=== PATIENT | male | born 1985 | race American Indian/Alaskan Native ===

== ENCOUNTER 2019-06-28 08:53 | Emergency (ER) | payer MEDICAID ==
--- NOTE | 2019-06-28 16:14 | Emergency Department Report ---
HPI - General Chief Complaint: Psych Time Seen by Provider: 06/28/19 15:34 - HPI HPI: 33-year-old -Norwegian male presents to the emergency department for a mental health evaluation. Patient is not very forthcoming with answering questions. Apparently through triage the patient mentioned "I have to go [place] At that time he mentioned something about wanting to without a plan. However for me the patient is refusing to answer most questions. He appears to respond mostly with "why?" In reviewing the patient's previous records he has a history of bipolar disorder and schizophrenia. He lives in a fpc. The patient does admit today that he was dropped off to be seen but could not tell me whether or not it was voluntarily. The patient was seen here 5 days ago for suicidal ideations and was discharged home by the psychiatric team. ED Past Medical Hx - Past Medical History Additional medical history: DENIES - Surgical History Past Surgical History?: No - Social History Smoking Status: Unknown if ever smoked - Medications Home Medications: Home Medications Medication Instructions Recorded Confirmed Last Taken Type Quetiapine Fumarate [SEROquel] 400 mg PO QHS 06/13/19 06/13/19 Unknown History ED Review of Systems ROS: Stated complaint: PSYCH Other details as noted in HPI Comment: Unobtainable due to pts medical conditions Physical Exam - Physical Exam Vital Signs: Vital Signs 06/28/19 08:58 Temperature 97.6 F Pulse Rate 63 Respiratory 18 Rate Blood Pressure 146/83 O2 Sat by Pulse 95 Oximetry Physical Exam: GENERAL: The patient is well-developed well-nourished. HENT: Normocephalic. Atraumatic. Patient has moist mucous membranes. EYES: Extraocular motions are intact. NECK: Supple. Trachea is midline. CHEST/LUNGS: Clear to auscultation. There is no respiratory distress noted. HEART/CARDIOVASCULAR: Regular. There is no tachycardia. There is no murmur. ABDOMEN: Abdomen is soft, nontender. Patient has normal bowel sounds. There is no abdominal distention. SKIN: Skin is warm and dry. NEURO: The patient is awake but is not cooperative. No facial asymmetry. MUSCULOSKELETAL: There is no tenderness or deformity. There is no evidence of acute injury. ED Course Vital Signs 06/28/19 08:58 Temperature 97.6 F Pulse Rate 63 Respiratory 18 Rate Blood Pressure 146/83 O2 Sat by Pulse 95 Oximetry ED Medical Decision Making - Lab Data Result diagrams: 06/28/19 16:46 06/28/19 16:46 - Medical Decision Making This patient presents for a mental health evaluation. Through triage he expresses some delusions and expressed suicidal ideations. For my examination the patient is unwilling to answer most questions. Given all of this, the patient has been placed on a 1013. He was seen by the mental health house manager, uJlia, who agrees with the plan for the 1013 and inpatient psychiatric admission. Shortly afterwards the patient has become verbally aggressive towards ER staff and other patients and was given some Geodon. He has been reevaluated multiple times and appears to be resting comfortably at this time. Patient's labs are thus far unremarkable. We are awaiting urinalysis but the patient appears medically cleared for psychiatric placement. - Differential Diagnosis Bipolar disorder, schizophrenia, schizoaffective, substance abuse Critical Care Time: No Critical care attestation.: If time is entered above; I have spent that time in minutes in the direct care of this critically ill patient, excluding procedure time. ED Disposition Clinical Impression: Acute psychosis Disposition: DC/TX-65 PSY HOSP/PSY UNIT Is pt being admited?: No Condition: Stable Referrals: BOB OROPEZA MD [Primary Care Provider] - 3-5 Days Time of Disposition: 22:18
[2019-06-28 17:12] LABS: Hematocrit 43.8 % (35.5-45.6); Hemoglobin 14.8 gm/dl (11.8-15.2); Mean Corpuscular HGB Conc 34 % (32-34); Mean Corpuscular Volume 93 fl (84-94); Platelet Count 270 K/mm3 (140-440); Red Blood Count 4.71 M/mm3 (3.65-5.03); Red Cell Distribution Width 13.3 % (13.2-15.2)
[2019-06-28 17:22] LABS: BUN/Creatinine Ratio 13; Blood Urea Nitrogen 10 mg/dL (9-20); Calcium 9.6 mg/dL (8.4-10.2); Hemolysis Index 9
[2019-06-28] MEDS ORDERED: ZIPRASIDONE MESYLATE 20 MG VIAL IM ONE (17:53)
[2019-06-28] MEDS ORDERED: WATER FOR INJ Sterile (PF) 10 ML ONE (17:56)
[2019-06-28 18:55] LABS: Basophils % (Manual) 0 % (0.0-1.8); Eosinophils % (Manual) 0 % (0.0-4.3); Total Cells Counted 100
[2019-06-28 18:56] LABS: Large Platelets 1+; Macrocytosis Few; Ovalocytes Few; Platelet Estimate Consistent w Auto
--- NOTE | 2019-06-29 11:00 | Consultation ---
History of Present Illness - Reason for Consult Consult date: 06/29/19 Reason for consult: SI, AH - History of Present Psychiatric Illness The patient's medical record was reviewed and the patient's progress was discussed with the nursing staff. The nurse caring for the patient today states the patient is suspicious of everything, paranoid and uncooperative with marian urbina. Shaquille Jimenez is a 33y/o male patient who came to the ER for for psychosis. The patient is known to me from a recent visit. He is sitting in the room. Awake. Dressed appropriately. He is avoidant. He does not respond or acknowledge me when entering the room or calling his name. Attempted to introduce myself and interview the patient but he never looks up. Left the room and spoke with the nurse caring for the patient. I attempted to interview the patient again. He says "I don't know you." He refuses to answer any more questions. Psychiatric History Unable to assess due to patient being uncooperative Past Medical History Unable to assess due to patient being uncooperative Social History Unable to assess due to patient being uncooperative REVIEW OF SYSTEMS Unable to obtain MSE Appearance: Dressed appropriately. Behavior: Calm. Avoidant. Unable to obtain. The patient would not cooperative Diagnoses: Diagnoses: Schizoaffective Disorder Plan Continue 1013 Geodon 20mg po BID to decrease psychosis Geodon 10mg IM q6h prn agitation Doxepin 10mg po qhs to induce sleep Melatonin 5mg po qhs to promote rest The patient cannot refuse oral antipsychotics. If he refuses oral, please administer PRN IM geodon Sitter: Defer to primary Medical: Per primary Disposition: The patient meets the requirement for acute inpatient hospitalization. He may transfer to an acute psych facility once medically cleared. Will continue to follow the patient until transferred or until his conditions improve enough to be discharged. Please call with any questions or concerns. Thank you for this consult. Medications and Allergies Allergies Allergy/AdvReac Type Severity Reaction Status Date / Time Unable to Assess Allergy Unverified 06/28/19 08:57 Mental Status Exam - Vital signs Last Vital Signs Temp 97.8 F 06/29/19 02:36 Pulse 96 H 06/29/19 02:36 Resp 18 06/29/19 02:36 BP 118/58 06/29/19 02:36 Pulse Ox 100 06/29/19 02:36 Results Result Diagrams: 06/28/19 16:46 06/28/19 16:46 Abnormal lab results 06/28/19 06/28/19 Range/Units 16:46 16:46 Monocytes % (Manual) 13.0 H (0.0-7.3) % Potassium 3.4 L (3.6-5.0) mmol/L Chloride 97.6 L (98-107) mmol/L Carbon Dioxide 21 L (22-30) mmol/L Glucose 105 H (75-100) mg/dL All other labs normal.
[2019-06-29] MEDS ORDERED: ZIPRASIDONE MESYLATE 20 MG VIAL IM PRN (11:09)
[2019-06-29] MEDS ORDERED: MELATONIN 5 MG TAB PO PRN (11:10)
[2019-06-29] MEDS: ZIPRASIDONE 20 MG CAP PO SCH ×2 (13:15→22:32)
[2019-06-29 15:55] LABS: Bacteria,Urine 1+ /HPF (Negative); Bilirubin,Urine NEG (Negative); Blood,Urine NEG (Negative); Color,Urine Yellow (Yellow); Mucus,Urine FEW /HPF; Protein,Urine <15 mg/dL mg/dL (Negative); Urobilinogen,Urine < 2.0 mg/dL (<2.0)
[2019-06-29 16:02] LABS: Amphetamine Screen,Urine PRESUMPTIVE NEGATIVE; Benzodiazepines Screen,Urine PRESUMPTIVE NEGATIVE; Cannabinoid Screen,Urine PRESUMPTIVE NEGATIVE; Cocaine Screen,Urine PRESUMPTIVE NEGATIVE; Methadone Screen,Urine PRESUMPTIVE NEGATIVE; Opiate Screen,Urine PRESUMPTIVE NEGATIVE
[2019-06-29] MEDS ORDERED: DOXEPIN 10 MG CAP PO SCH (22:00)
[2019-06-30 02:07] VITALS: BP 125/80
== END 2019-06-30 03:30 ==
LOC: EDBD → EEVIPCON 08:53 → ED 08:53
DX: F23 Brief psychotic disorder (principal)
CPT/HCPCS: 36415; 80048; 80307; 81001; 85007; 85025; 96372; 99285; J3486; 80320; G0480

== ENCOUNTER 2020-04-08 12:17 | Emergency (ER) | payer BC, MEDICARE ==
--- NOTE | 2020-04-08 13:56 | Emergency Department Report ---
ED Psych HPI - General Chief Complaint: Psych Stated Complaint: SI Time Seen by Provider: 04/08/20 13:46 Source: patient Mode of arrival: Ambulatory - History of Present Illness Initial Comments: 34-year-old male, history is bipolar disorder and schizophrenia, presents to ED with homicidal ideations. Patient states he wants to kill Mr. 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 Patient states, "Because he is always in my business and he keeps provoking me." Patient reports his plan is to "get a knife and kill him." Patient states he has been feeling this way since 2019. Patient denies any SI or hallucinations. MD Complaint: other -: month(s) (3) Associated Psychiatric Symptoms: homicidal ideation Quality: constant Improves With: none Worsens With: none Associated Symptoms: denies other symptoms Treatments Prior to Arrival: none - Related Data Home Medications Medication Instructions Recorded Confirmed Last Taken Divalproex ER [DepaKOTE ER] 1,500 mg PO QHS 12/25/19 04/08/20 Unknown Paliperidone Palmitate [Invega 1 mg IM QMONTH 12/25/19 04/08/20 Unknown Sustenna] Allergies Allergy/AdvReac Type Severity Reaction Status Date / Time shellfish derived Allergy Anaphylaxis Verified 12/25/19 01:53 ED Review of Systems ROS: Stated complaint: SI Other details as noted in HPI Comment: All other systems reviewed and negative Psychiatric: homicidal thoughts. denies: auditory hallucinations, visual hallucinations, suicidal thoughts ED Past Medical Hx - Past Medical History Previous Medical History?: Yes Hx Hypertension: Yes Hx Psychiatric Treatment: Yes (MDD, Paranoid Schizophrenia, bipolar) Hx Asthma: Yes Additional medical history: DENIES - Surgical History Past Surgical History?: No Additional Surgical History: unknown - Social History Smoking Status: Never Smoker - Medications Home Medications: Home Medications Medication Instructions Recorded Confirmed Last Taken Type Divalproex ER [DepaKOTE ER] 1,500 mg PO QHS 12/25/19 04/08/20 Unknown History Paliperidone Palmitate [Invega 1 mg IM QMONTH 12/25/19 04/08/20 Unknown History Sustenna] ED Physical Exam - General Limitations: No Limitations General appearance: alert, in no apparent distress - Head Head exam: Present: atraumatic, normocephalic - Eye Eye exam: Present: normal appearance, EOMI - ENT ENT exam: Present: mucous membranes moist - Neck Neck exam: Present: normal inspection - Respiratory Respiratory exam: Present: normal lung sounds bilaterally. Absent: respiratory distress - Cardiovascular Cardiovascular Exam: Present: regular rate, normal rhythm - GI/Abdominal GI/Abdominal exam: Absent: distended - Extremities Exam Extremities exam: Present: normal inspection - Neurological Exam Neurological exam: Present: alert, oriented X3 - Psychiatric Psychiatric exam: Present: normal affect, normal mood - Skin Skin exam: Present: warm, dry, intact, normal color ED Course Vital Signs 04/08/20 04/08/20 04/08/20 12:51 13:41 15:29 Temperature 98.5 F 98 F Pulse Rate 82 81 Respiratory 14 18 18 Rate Blood Pressure Blood Pressure 181/87 118/70 [Right] O2 Sat by Pulse 99 100 100 Oximetry 04/08/20 19:38 Temperature 98.3 F Pulse Rate 74 Respiratory 18 Rate Blood Pressure 109/67 Blood Pressure [Right] O2 Sat by Pulse 99 Oximetry ED Medical Decision Making - Lab Data Result diagrams: 04/08/20 14:19 04/08/20 14:19 - Medical Decision Making 34-year-old male, history of schizophrenia, presents to ED with homicidal ideations. Patient states he plans to kill the director of his care home with a knife. Upon initial arrival, blood pressure was elevated, however repeat vital signs are normal. Labs are unremarkable. Patient has been placed on a 1013. Will dispo per psych. - Differential Diagnosis Schizophrenia, homicidal ideation Critical care attestation.: If time is entered above; I have spent that time in minutes in the direct care of this critically ill patient, excluding procedure time. ED Disposition Clinical Impression: Homicidal ideation Disposition: DC/TX-65 PSY HOSP/PSY UNIT Is pt being admited?: No Condition: Stable Referrals: PRIMARY CARE, [Primary Care Provider] - 3-5 Days
[2020-04-08 14:20] LABS: Bilirubin,Urine NEG (Negative); Blood,Urine NEG (Negative); Color,Urine Straw (Yellow); Protein,Urine <15 mg/dL mg/dL (Negative); Urobilinogen,Urine < 2.0 mg/dL (<2.0)
[2020-04-08 14:22] LABS: WBC,Urine < 1.0 /HPF (0.0-6.0)
[2020-04-08 14:27] LABS: Amphetamine Screen,Urine Negative; Benzodiazepines Screen,Urine Negative; Cannabinoid Screen,Urine Negative; Cocaine Screen,Urine Negative; Methadone Screen,Urine Negative; Opiate Screen,Urine Negative
[2020-04-08 15:02] LABS: Eosinophils # (Auto) 0.1 K/mm3 (0.0-0.4); Eosinophils % (Auto) 1.4 % (0.0-4.3); Hematocrit 38.9 % (35.5-45.6); Hemoglobin 13.7 gm/dl (11.8-15.2); Lymphocytes # (Auto) 1.9 K/mm3 (1.2-5.4); Lymphocytes % (Auto) 45.8 % (13.4-35.0); Mean Corpuscular HGB Conc 35 % (32-34); Mean Corpuscular Volume 96 fl (84-94); Monocytes # (Auto) 0.4 K/mm3 (0.0-0.8); Monocytes % (Auto) 8.9 % (0.0-7.3); Platelet Count 227 K/mm3 (140-440); Red Blood Count 4.04 M/mm3 (3.65-5.03); Red Cell Distribution Width 14.7 % (13.2-15.2)
[2020-04-08 15:35] LABS: BUN/Creatinine Ratio 10; Blood Urea Nitrogen 9 mg/dL (9-20); Calcium 9.5 mg/dL (8.4-10.2); Hemolysis Index 13
[2020-04-08 20:11] VITALS: BP 109/67
== END 2020-04-08 21:30 ==
LOC: ED 12:17
DX: R45.850 Homicidal ideations (principal); I10 Essential (primary) hypertension; J45.909 Unspecified asthma, uncomplicated; F25.0 Schizoaffective disorder, bipolar type; Z79.899 Other long term (current) drug therapy; Z91.013 Allergy to seafood
CPT/HCPCS: 36415; 80048; 80307; 80320; 81001; 85025; G0480

== ENCOUNTER 2020-04-22 14:37 | Emergency (ER) | payer MEDICARE ==
--- NOTE | 2020-04-22 16:46 | Emergency Department Report ---
ED Psych HPI - General Chief Complaint: Psych Stated Complaint: MENTAL HEALTH, SI Time Seen by Provider: 04/22/20 16:30 Source: patient Mode of arrival: Ambulatory - History of Present Illness Initial Comments: Chief complaint: "I am really scared." HPI: This is a 34-year-old male with history of schizophrenia, major depressive disorder, bipolar affective disorder who presents with paranoia, anxiety, auditory and visual hallucinations. For the past day he feels "like people are out to get me". 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 He feels as if he is hyperventilating. He also states, "I feel suicidal." He does not have a plan to harm himself or others. Patient has been compliant with Depakote. He lives in a long term. He also receives Invega injection. He receives psychiatric care at [facility]. Physically he has been in his normal state of health. He denies any physical complaints. History of several previous suicide attempts. History of previous psychiatric hospitalizations. MD Complaint: suicidal ideation, feels depressed, other (Hallucinations, paranoia, anxiety) -: Gradual, days(s) (1) Associated Psychiatric Symptoms: depression, racing thoughts, auditory h allucinations, visual hallucinations History of same: Yes Quality: constant Improves With: medication Worsens With: none Context: other (Unknown trigger) Associated Symptoms: other ("Hyperventilating") Treatments Prior to Arrival: none If Self Harm: admits thoughts of - Related Data Home Medications Medication Instructions Recorded Confirmed Last Taken Divalproex ER [DepaKOTE ER] 1,500 mg PO QHS 12/25/19 04/08/20 Unknown Paliperidone Palmitate [Invega 1 mg IM QMONTH 12/25/19 04/08/20 Unknown Sustenna] Allergies Allergy/AdvReac Type Severity Reaction Status Date / Time shellfish derived Allergy Anaphylaxis Verified 12/25/19 01:53 ED Review of Systems ROS: Stated complaint: MENTAL HEALTH, SI Other details as noted in HPI Comment: All other systems reviewed and negative Constitutional: denies: fever, malaise Respiratory: denies: cough, shortness of breath Cardiovascular: denies: chest pain Gastrointestinal: denies: abdominal pain, nausea, vomiting Psychiatric: anxiety, depression, auditory hallucinations, visual alf lucinations, suicidal thoughts ED Past Medical Hx - Past Medical History Previous Medical History?: Yes Hx Hypertension: Yes Hx Psychiatric Treatment: Yes (MDD, Paranoid Schizophrenia, bipolar) Hx Asthma: Yes Additional medical history: DENIES - Surgical History Additional Surgical History: unknown - Social History Smoking Status: Never Smoker - Medications Home Medications: Home Medications Medication Instructions Recorded Confirmed Last Taken Type Divalproex ER [DepaKOTE ER] 1,500 mg PO QHS 12/25/19 04/08/20 Unknown History Paliperidone Palmitate [Invega 1 mg IM QMONTH 12/25/19 04/08/20 Unknown History Sustenna] ED Physical Exam - General Limitations: No Limitations General appearance: alert, in no apparent distress, anxious - Head Head exam: Present: atraumatic, normocephalic - Eye Eye exam: Present: normal appearance - ENT ENT exam: Present: mucous membranes moist - Neck Neck exam: Present: normal inspection, full ROM - Respiratory Respiratory exam: Present: normal lung sounds bilaterally. Absent: respiratory distress, wheezes, rales, rhonchi - Cardiovascular Cardiovascular Exam: Present: regular rate, normal rhythm, normal heart sounds. Absent: systolic murmur, diastolic murmur, rubs, gallop - GI/Abdominal GI/Abdominal exam: Present: soft, normal bowel sounds. Absent: distended, tenderness, guarding, rebound - Rectal Rectal exam: Present: deferred - Extremities Exam Extremities exam: Present: normal inspection - Back Exam Back exam: Present: normal inspection - Neurological Exam Neurological exam: Present: alert, oriented X3 - Psychiatric Psychiatric exam: Present: normal affect, anxious, flat affect - Skin Skin exam: Present: warm, dry, intact, normal color. Absent: rash ED Course Vital Signs 04/22/20 15:35 Temperature 98.6 F Pulse Rate 62 Respiratory 18 Rate Blood Pressure 130/73 [Right] O2 Sat by Pulse 98 Oximetry ED Medical Decision Making - Lab Data Result diagrams: 04/22/20 16:36 04/22/20 16:36 - Medical Decision Making Mr. Jimenez is a 34-year-old male with history of major depressive disorder, paranoid schizophrenia and bipolar affective disorder. Who presents with paranoia, anxiety suicidality. He also reports auditory and visual hallucinations. Mr. Jimenez is medically clear for psychiatric care. He currently does not have a plan to harm himself or others. He does appear anxious at this time. He does not appear to be responding to internal stimuli. Awaiting treatment recommendations by psychiatric team. 1013 form has been completed to initiate involuntary hold for acute psychosis severe symptoms of anxiety suicidality. I have reviewed labs obtained including CBC chemistry serum toxicology screen urinalysis and UDS. All labs are unremarkable. Serum toxicology screen negative for salicylates acetaminophen alcohol. Urine drug screen hendrickson-negative. Critical care attestation.: If time is entered above; I have spent that time in minutes in the direct care of this critically ill patient, excluding procedure time. ED Disposition Clinical Impression: Acute psychosis, Suicidal ideation, Paranoid schizophrenia, Bipolar affective disorder Disposition: DC/TX-65 PSY HOSP/PSY UNIT Is pt being admited?: No Does the pt Need Aspirin: No Condition: Stable Referrals: PRIMARY CAREMD [Primary Care Provider] - 3-5 Days
[2020-04-22 16:55] LABS: Bilirubin,Urine NEG (Negative); Blood,Urine NEG (Negative); Color,Urine Yellow (Yellow); Mucus,Urine FEW /HPF; Protein,Urine <15 mg/dL mg/dL (Negative); Urobilinogen,Urine < 2.0 mg/dL (<2.0)
[2020-04-22 17:03] LABS: Amphetamine Screen,Urine PRESUMPTIVE NEGATIVE; Benzodiazepines Screen,Urine PRESUMPTIVE NEGATIVE; Cannabinoid Screen,Urine PRESUMPTIVE NEGATIVE; Cocaine Screen,Urine PRESUMPTIVE NEGATIVE; Methadone Screen,Urine PRESUMPTIVE NEGATIVE; Opiate Screen,Urine PRESUMPTIVE NEGATIVE
[2020-04-22 17:07] LABS: Basophils # (Auto) 0.1 K/mm3 (0.0-0.1); Basophils % (Auto) 0.9 % (0.0-1.8); Eosinophils # (Auto) 0.1 K/mm3 (0.0-0.4); Eosinophils % (Auto) 1.2 % (0.0-4.3); Hematocrit 46.8 % (35.5-45.6); Hemoglobin 15.5 gm/dl (11.8-15.2); Lymphocytes # (Auto) 1.9 K/mm3 (1.2-5.4); Lymphocytes % (Auto) 33.7 % (13.4-35.0); Mean Corpuscular HGB Conc 33 % (32-34); Mean Corpuscular Volume 97 fl (84-94); Monocytes # (Auto) 0.5 K/mm3 (0.0-0.8); Monocytes % (Auto) 8.9 % (0.0-7.3); Platelet Count 286 K/mm3 (140-440); Red Blood Count 4.85 M/mm3 (3.65-5.03); Red Cell Distribution Width 14.4 % (13.2-15.2)
[2020-04-22 17:09] LABS: BUN/Creatinine Ratio 10; Blood Urea Nitrogen 9 mg/dL (9-20); Calcium 10.1 mg/dL (8.4-10.2); Hemolysis Index 20
--- NOTE | 2020-04-23 08:31 | Consultation ---
History of Present Illness - Reason for Consult Consult date: 04/23/20 Reason for consult: MHE Requesting physician: MAGALY VALE - History of Present Psychiatric Illness Per ED Provider: This is a 34-year-old male with history of schizophrenia, major depressive disorder, bipolar affective disorder who presents with paranoia, anxiety, auditory and visual hallucinations. For the past day he feels "like people are out to get me". 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 He feels as if he is hyperventilating. He also states, "I feel suicidal." He does not have a plan to harm himself or others. Patient has been compliant with Depakote. He lives in a nursing home. He also receives Invega injection. He receives psychiatric care at [facility]. Physically he has been in his normal state of health. He denies any physical complaints. History of several previous suicide attempts. History of previous psychiatric hospitalizations. PSYCH HPI Patient is a 34-year-old single, unemployed currently on SSI, -[place]incent[place] male who resides in a nursing home with past psychiatric history of autism, bipolar, schizoaffective disorder who presented to the ED with chief complaint of paranoia. Though patient is not known to me, patient is well-known to the facility presented to the facility about 2 weeks ago with similar complaints and was admitted to a psych facility for 10 days in which was just recently discharged after being managed inpatient. Patient stated that he is thinking about kill himself because someone is out after getting the report is being followed and does not know with this presently and then self admits to being paranoid, patient reported being in a nursing home, prior to that he was homeless, patient reports he sees Dr. Santoro as an outne tient psychiatrist but he has not seen in recent months, reports that her mom are . Patient also stated that he is upset, but is not know why he is still paranoid. PAST PSYCHIATRIC HISTORY: Diagnoses: Bipolar Suicide attempts or Self-harm behavior: seven Prior psychiatric hospitalizations: "multiple, most recent less than 4 days ago" Substance Abuse history: Denies Previous psychiatric medications tried: unable to recall Outpatient treatment: non compliance PAST MEDICAL HISTORY: None reported Family Psychiatric History: None reported or documented SOCIAL HISTORY Marital Status: Single Living Arrangements: [facility] Employment Status: Disabled Access to guns/weapons: Denies Education: High school grad History of Abuse: "thinks people are misusing his money" Legal History: Denies REVIEW OF SYSTEMS Constitutional: Negative for weight loss ENT: Negative for stridor Respiratory: Negative for cough or hemoptysis All other systems reviewed and are negative MENTAL STATUS EXAMINATION General Appearance: Dressed appropriately Behavior: Calm and cooperative. Poor eye contact, withdrawn to self Mood: "depressed" Affect and affective range: Congruent with stated mood Thought Process: Goal directed Speech: low tone, normal pace Thought Content: Suicidal Ideation: Yes Homicidal Ideation: Denies Hallucinations: Auditory Delusions: None elicited Insight and Judgment: Limited Memory/Cognition: Limited Attention: Normal ASSESSMENT Bipolar Disorder, Current Episode Depressed Treatment Plan This patient was just recently at this facility 2 weeks ago and was placed for acute inpatient stabilization in which was just discharged less than 4 days ago. Patient has multiple psychiatric history, patient has no good outpatient follow-up based on history, has also had multiple hospitalizations, unsure abouts medication compliance and is not acutely psychotic. Patients behavior seems chronic, based on history, and secondary information from nursing home. Reports patients likes to go to hospital even for anxiety and minor issues at nursing home. Discussed with my care team, to have outp follow up referral services scheduled, at this time, due to recent hospitalization, outpt psych services recommended. MEDICATIONS: Risks, benefits and alternatives of medications discussed with the patient, questions answered and consent obtained from patient. PSYCHOTHERAPY: Supportive psychotherapy provided MEDICAL: Per primary team DELIRIUM PRECAUTIONS: Please re-orient patient frequently, keep lights on during the day, and minimize benzodiazepines and opiates as these medications could worsen patient's confusion. 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 Safety discharge. Case discussed with Edwar, agrees with disposition LEGAL STATUS: 1013 rescinded FOLLOW-UP: Will sign off Thank you for the consult. Please contact with any questions and/or concerns. Medications and Allergies Allergies Allergy/AdvReac Type Severity Reaction Status Date / Time shellfish derived Allergy Anaphylaxis Verified 12/25/19 01:53 Home Medications Medication Instructions Recorded Confirmed Last Taken Type Divalproex ER [DepaKOTE ER] 1,500 mg PO QHS 12/25/19 04/08/20 Unknown History Paliperidone Palmitate [Invega 1 mg IM QMONTH 08/18/20 12/01/20 Unknown History Sustenna] Mental Status Exam - Vital signs Last Vital Signs Temp 98.2 F 04/23/20 01:05 Pulse 73 04/23/20 01:05 Resp 18 04/23/20 01:05 BP 106/73 04/23/20 01:05 Pulse Ox 97 04/23/20 01:05 Results Result Diagrams: 04/22/20 16:36 04/22/20 16:36 Abnormal lab results 04/22/20 04/22/20 04/22/20 Range/Units 16:36 16:36 16:36 Hgb 15.5 H (11.8-15.2) gm/dl Hct 46.8 H (35.5-45.6) % MCV 97 H (84-94) fl [place] % (Auto) 8.9 H (0.0-7.3) % Glucose 74 L (75-100) mg/dL Salicylates < 0.3 L (2.8-20.0) mg/dL Acetaminophen (10.0-30.0) ug/mL 04/22/20 Range/Units 16:36 Hgb (11.8-15.2) gm/dl Hct (35.5-45.6) % MCV (84-94) fl [place] % (Auto) (0.0-7.3) % Glucose (75-100) mg/dL Salicylates (2.8-20.0) mg/dL Acetaminophen 5.0 L (10.0-30.0) ug/mL All other labs normal.
[2020-04-23 09:20] VITALS: BP 110/80
== END 2020-04-23 15:30 | disposition home or self-care (01) ==
LOC: ED 14:37
DX: F23 Brief psychotic disorder (principal); F20.0 Paranoid schizophrenia; F31.9 Bipolar disorder, unspecified; I10 Essential (primary) hypertension; J45.909 Unspecified asthma, uncomplicated; Z79.899 Other long term (current) drug therapy; Z91.013 Allergy to seafood
CPT/HCPCS: 36415; 80048; 80164; 80307; 80320; 81001; 85025; G0480

== ENCOUNTER 2020-06-22 19:26 | Emergency (ER) | payer MEDICAID, MEDICARE ==
--- NOTE | 2020-06-22 19:59 | Event Note ---
ED Screening Note Date of service: 06/22/20 Time: 19:58 ED Screening Note: 34-year-old -[place] male presents to the emergency room with a history of schizophrenia comes in stating he hears voices telling him to harm the person that he would not give relationship to her name as well as hurt himself. This initial assessment/diagnostic orders/clinical plan/treatment(s) is/are subject to change based on patients health status, clinical progression and re- assessment by fellow clinical providers in the ED. Further treatment and workup at subsequent clinical providers discretion. Patient/guardian urged not to elope from the ED as their condition may be serious if not clinically assessed and managed. Initial orders include:
--- NOTE | 2020-06-22 20:19 | Emergency Department Report ---
<LACEY BAIG - Last Filed: 06/22/20 21:08> ED Psych HPI - General Chief Complaint: Psych Stated Complaint: MENTAL HEALTH;HOMICIAL Time Seen by Provider: 06/22/20 20:13 Source: patient Mode of arrival: Ambulatory - History of Present Illness Initial Comments: 34-year-old male, history of schizophrenia, presents to ED for mental health evaluation. Patient reports he is having auditory hallucinations commanding him to hurt himself and others. Triage note states that patient reported he wanted to hurt his roommate. Patient states he is also feeling suicidal because he cannot control things that are affecting his life. Patient does not have a plan for suicide or homicide. Patient states he is currently on Depakote, Zoloft, and Invega for his schizophrenia. MD Complaint: other (Suicidal and homicidal ideation) -: unknown Associated Psychiatric Symptoms: suicidal ideation, homicidal ideation, auditory hallucinations Quality: constant Improves With: none Worsens With: none Associated Symptoms: denies other symptoms If Self Harm: admits thoughts of - Related Data Home Medications Medication Instructions Recorded Confirmed Last Taken Paliperidone Palmitate [Invega 1 mg IM QMONTH 12/25/19 06/24/20 Unknown Sustenna] Allergies Allergy/AdvReac Type Severity Reaction Status Date / Time shellfish derived Allergy Anaphylaxis Verified 12/25/19 01:53 ED Review of Systems Comment: All other systems reviewed and negative Psychiatric: auditory hallucinations, homicidal thoughts, suicidal thoughts ED Past Medical Hx - Past Medical History Hx Hypertension: Yes Hx Psychiatric Treatment: Yes (MDD, Paranoid Schizophrenia, bipolar) Hx Asthma: Yes Additional medical history: DENIES - Surgical History Additional Surgical History: unknown - Social History Smoking Status: Never Smoker Substance Use Type: None - Medications Home Medications: Home Medications Medication Instructions Recorded Confirmed Last Taken Type Paliperidone Palmitate [Invega 1 mg IM QMONTH 12/25/19 06/24/20 Unknown History Sustenna] ED Physical Exam - General Limitations: No Limitations General appearance: alert, in no apparent distress - Head Head exam: Present: atraumatic, normocephalic - Eye Eye exam: Present: normal appearance, EOMI - ENT ENT exam: Present: mucous membranes moist - Neck Neck exam: Present: normal inspection - Respiratory Respiratory exam: Present: normal lung sounds bilaterally. Absent: respiratory distress - Cardiovascular Cardiovascular Exam: Present: regular rate, normal rhythm - GI/Abdominal GI/Abdominal exam: Absent: distended - Extremities Exam Extremities exam: Present: normal inspection - Neurological Exam Neurological exam: Present: alert, oriented X3 - Psychiatric Psychiatric exam: Present: flat affect - Skin Skin exam: Present: warm, dry, intact, normal color ED Medical Decision Making - Lab Data Result diagrams: 06/22/20 19:58 06/22/20 19:58 - Medical Decision Making 34-year-old male presents to ED with auditory hallucinations, suicidal and homicidal ideations. Patient has been placed on 1013. Labs are unremarkable. Patient is medically clear for mental health evaluation. Will dispo per psych. ED Disposition Clinical Impression: Psychosis Condition: Stable Referrals: PRIMARY CARE, [Primary Care Provider] - 3-5 Days <SWAPNIL HUERTAS - Last Filed: 06/24/20 12:15> ED Review of Systems ROS: Stated complaint: MENTAL HEALTH;HOMICIAL Other details as noted in HPI ED Course Vital Signs 06/22/20 06/22/20 06/22/20 19:30 19:38 21:38 Temperature 98.7 F 98.7 F 98.5 F Pulse Rate 104 H 97 H 86 Respiratory 18 18 18 Rate Blood Pressure 128/81 Blood Pressure 128/81 112/76 [Right] O2 Sat by Pulse 95 96 96 Oximetry 06/22/20 06/23/20 06/23/20 22:45 17:14 18:30 Temperature 98.2 F 98.3 F Pulse Rate 84 75 Respiratory 18 18 18 Rate Blood Pressure Blood Pressure 122/75 105/65 [Right] O2 Sat by Pulse 96 99 Oximetry 06/23/20 06/24/20 06/24/20 22:42 05:14 08:03 Temperature 98 F 98.4 F 98 F Pulse Rate 70 76 82 Respiratory 14 14 18 Rate Blood Pressure Blood Pressure 124/79 118/70 120/70 [Right] O2 Sat by Pulse 98 98 98 Oximetry ED Medical Decision Making - Lab Data Result diagrams: 06/22/20 19:58 06/22/20 19:58 Critical care attestation.: If time is entered above; I have spent that time in minutes in the direct care of this critically ill patient, excluding procedure time.
[2020-06-22 20:32] LABS: Bacteria,Urine 3+ /HPF (Negative); Bilirubin,Urine NEG (Negative); Blood,Urine NEG (Negative); Color,Urine Straw (Yellow); Protein,Urine <15 mg/dL mg/dL (Negative); Urobilinogen,Urine < 2.0 mg/dL (<2.0); WBC,Urine < 1.0 /HPF (0.0-6.0)
[2020-06-22 20:32] LABS: Hematocrit 42.2 % (35.5-45.6); Hemoglobin 14.4 gm/dl (11.8-15.2); Mean Corpuscular HGB Conc 34 % (32-34); Mean Corpuscular Volume 97 fl (84-94); Platelet Count 135 K/mm3 (140-440); Red Blood Count 4.35 M/mm3 (3.65-5.03); Red Cell Distribution Width 13.6 % (13.2-15.2)
[2020-06-22 20:35] LABS: Alanine Aminotransferase 15 units/L (7-56); Albumin 3.9 g/dL (3.9-5); BUN/Creatinine Ratio 13; Blood Urea Nitrogen 13 mg/dL (9-20); Calcium 9.2 mg/dL (8.4-10.2); Hemolysis Index 3
[2020-06-22 20:37] LABS: Amphetamine Screen,Urine Negative; Benzodiazepines Screen,Urine Negative; Cannabinoid Screen,Urine Negative; Cocaine Screen,Urine Negative; Methadone Screen,Urine Negative; Opiate Screen,Urine Negative
[2020-06-22 21:41] LABS: RBC Morphology Normal; Total Cells Counted 100
--- NOTE | 2020-06-23 09:03 | Consultation ---
History of Present Illness - Reason for Consult Consult date: 06/23/20 Reason for consult: SI/HI - History of Present Psychiatric Illness Per ED Note: "34-year-old male, history of schizophrenia, presents to ED for mental health evaluation. Patient reports he is having auditory hallucinations commanding him to hurt himself and others. Triage note states that patient reported he wanted to hurt his roommate. Patient states he is also feeling suicidal because he cannot control things that are affecting his life. Patient does not have a plan for suicide or homicide. Patient states he is currently on Depakote, Zoloft, and Invega for his schizophrenia." Shaquille Jimenez is a 34y/o male patient who is known to me. He verbalizes voices telling him to hurt his roommate. He says "he is doing something that he has no business but I can't prove it." The patient says, "he's the only person I want to hurt outside of myself." When asking the person was he saying he wanted to hurt himself, he says "yea, I want to kill myself, but my roommate makes me feel like this." He says "the voices is telling me that he's up to no good and to take care of him." The patient says "I need to get out of there." He denies any drug use, alcohol or nicotine. He says he takes depakote, zoloft and invega sustenna but states it's time for his second injection. He says "it's past due." PAST PSYCHIATRIC HISTORY: Diagnoses: Bipolar Suicide attempts or Self-harm behavior: seven Prior psychiatric hospitalizations: "13" Substance Abuse history: Denies Previous psychiatric medications tried: Invega injection and depakote Outpatient treatment: Yes, [facility] PAST MEDICAL HISTORY: None reported Family Psychiatric History: None reported or documented SOCIAL HISTORY Marital Status: Single Living Arrangements: Homeless Employment Status: Disabled Access to guns/weapons: Denies Education: High school grad History of Abuse: "thinks people are misusing his money" Legal History: Denies REVIEW OF SYSTEMS Constitutional: Negative for weight loss ENT: Negative for stridor Respiratory: Negative for cough or hemoptysis All other systems reviewed and are negative MENTAL STATUS EXAMINATION General Appearance: Dressed appropriately Behavior: Calm and cooperative. Poor eye contact Mood: "depressed" Affect and affective range: Congruent with stated mood Thought Process: Goal directed Speech: low tone, normal pace Thought Content: Suicidal Ideation: Yes Homicidal Ideation: Yes Hallucinations: Auditory Delusions: None elicited Insight and Judgment: Limited Memory/Cognition: Limited Attention: Normal RECOMMENDATIONS 1013 Continue Depakote 500mg po TID Continue Zoloft 25mg po daily Start Invega Sustenna MEDICATIONS: Patient states he his own monthly Invega, and will be due for another on the . Risks, benefits and alternatives of medications discussed with the patient, questions answered and consent obtained from patient. PSYCHOTHERAPY: Supportive psychotherapy provided MEDICAL: Per primary team DELIRIUM PRECAUTIONS: Please re-orient patient frequently, keep lights on during the day, and minimize benzodiazepines and opiates as these medications could worsen patient's confusion. DOCTOR OF NURSING PRACTICE: Per medical team DISPOSITION: Recommends acute inpatient psychiatric hospitalization at this time FOLLOW-UP: Will Follow Thank you for the consult. Please contact with any questions and/or concerns. Case discussed with Dr. Elam Medications and Allergies Allergies Allergy/AdvReac Type Severity Reaction Status Date / Time shellfish derived Allergy Anaphylaxis Verified 12/25/19 01:53 Home Medications Medication Instructions Recorded Confirmed Last Taken Type Divalproex ER [DepaKOTE ER] 1,500 mg PO QHS 12/25/19 04/08/20 Unknown History Paliperidone Palmitate [Invega 1 mg IM QMONTH 12/25/19 04/08/20 Unknown History Sustenna] Mental Status Exam - Vital signs Last Vital Signs Temp 98.5 F 06/22/20 21:38 Pulse 86 06/22/20 21:38 Resp 18 06/22/20 22:45 BP 112/76 06/22/20 21:38 Pulse Ox 96 06/22/20 22:45 Results Result Diagrams: 06/22/20 19:58 06/22/20 19:58 Abnormal lab results 06/22/20 06/22/20 06/22/20 Range/Units 19:58 19:58 19:58 WBC 4.1 L (4.5-11.0) K/mm3 MCV 97 H (84-94) fl MCH 33 H (28-32) pg Plt Count 135 L (140-440) K/mm3 Seg Neuts % (Manual) 38.0 L (40.0-70.0) % Lymphocytes % (Manual) 39.0 H (13.4-35.0) % Monocytes % (Manual) 16.0 H (0.0-7.3) % Eosinophils % (Manual) 6.0 H (0.0-4.3) % Seg Neutrophils # Man 1.6 L (1.8-7.7) K/mm3 Sodium 136 L (137-145) mmol/L Salicylates < 0.3 L (2.8-20.0) mg/dL Acetaminophen (10.0-30.0) ug/mL 06/22/20 Range/Units 19:58 WBC (4.5-11.0) K/mm3 MCV (84-94) fl MCH (28-32) pg Plt Count (140-440) K/mm3 Seg Neuts % (Manual) (40.0-70.0) % Lymphocytes % (Manual) (13.4-35.0) % Monocytes % (Manual) (0.0-7.3) % Eosinophils % (Manual) (0.0-4.3) % Seg Neutrophils # Man (1.8-7.7) K/mm3 Sodium (137-145) mmol/L Salicylates (2.8-20.0) mg/dL Acetaminophen 5.0 L (10.0-30.0) ug/mL All other labs normal.
[2020-06-23] MEDS: SERTRALINE 25 MG TAB PO SCH (11:27)
[2020-06-23] MEDS: DIVALPROEX DR 500 MG TAB PO SCH ×2 (14:50→20:40)
[2020-06-24 08:06] VITALS: BP 120/70
[2020-06-24] MEDS: DIVALPROEX DR 500 MG TAB PO SCH (08:17)
--- NOTE | 2020-06-24 08:25 | Progress Note ---
Subjective - Reason for Consult Consult date: 06/24/20 Reason for consult: hallucinations - Chief Complaint Chief complaint: The patient is lying in the bed awake. He says he fee;s much better. He is denying thoughts of wanting to hurt his roommate, that he verbalized yesterday. He also denies suicidal thoughts. The patient does verbalize hearing voices "telling me I got the wrong diagnoses." He says but he hears voices all the time. When asking the patient was the voices worse than they have been before he replies "no, they are they same." The patient is calm and cooperative. He says "I think I have PTSD and that's why I get upset." REVIEW OF SYSTEMS Constitutional: Negative for weight loss ENT: Negative for stridor Respiratory: Negative for cough or hemoptysis All other systems reviewed and are negative MENTAL STATUS EXAMINATION General Appearance: Dressed appropriately Behavior: Calm and cooperative. good eye contact Mood: "much better" Affect and affective range: Congruent with stated mood Thought Process: Goal directed Speech: low tone, normal pace Thought Content: Suicidal Ideation: Denies Homicidal Ideation: Denies Hallucinations: Auditory Delusions: None elicited Insight and Judgment: Limited Memory/Cognition: Limited Attention: Normal RECOMMENDATIONS d/c 1013 The patient says he has not has his invega sustenna and states it is due. to get Invega Sustenna injection prior to discharge. Risks, benefits and alternatives of medications discussed with the patient, questions answered and consent obtained from patient. PSYCHOTHERAPY: Supportive psychotherapy provided MEDICAL: Per primary team DELIRIUM PRECAUTIONS: Please re-orient patient frequently, keep lights on during the day, and minimize benzodiazepines and opiates as these medications could worsen patient's confusion. MANAGER FILM: Per medical team DISPOSITION: Do not Recommends acute inpatient psychiatric hospitalization at this time The central service supply distributor to give safety plan, and outpatient resources for psych services. The patient is to follow up in 7 to 14 days upon discharge Will sign off. Thank you for the consult. Please contact with any questions and/or concerns. Case discussed with Dr. Elam Mental Status Exam - Vital signs Last Vital Signs Temp 98 F 06/24/20 08:03 Pulse 82 06/24/20 08:03 Resp 18 06/24/20 08:03 BP 120/70 06/24/20 08:03 Pulse Ox 98 06/24/20 08:03
[2020-06-24] MEDS ORDERED: PALIPERIDONE PALMITATE 39 MG/0.25 ML IM SCH (09:15)
[2020-06-24] MEDS: SERTRALINE 25 MG TAB PO SCH (10:05)
--- NOTE | 2020-06-24 11:54 | Event Note ---
Date: 06/24/20 Patient was medically cleared on his initial evaluation. Psychiatric team have discontinued 1013 and recommended outpatient follow-up. Patient awake, alert, oriented, states he is not having physical pain, and not experiencing homicidality or suicidality. The patient was evaluated in the emergency department for symptoms described in the history of present illness. He/she was evaluated in the context of the global COVID-19 pandemic, which necessitated consideration that the patient might be at risk for infection with the virus that causes COVID-19. Institutional protocols and algorithms that pertain to the evaluation of patients at risk for COVID-19 are in a state of rapid change based on information released by regulatory bodies including the CDC and federal and state organizations. These policies and algorithms were followed during the patient's care in the emergency department. Please note that these policies, procedures and recommendations changed on a rapid basis. Vital Signs 06/22/20 06/22/20 06/22/20 19:30 19:38 21:38 Temperature 98.7 F 98.7 F 98.5 F Pulse Rate 104 H 97 H 86 Respiratory 18 18 18 Rate Blood Pressure 128/81 Blood Pressure 128/81 112/76 [Right] O2 Sat by Pulse 95 96 96 Oximetry 06/22/20 06/23/20 06/23/20 22:45 17:14 18:30 Temperature 98.2 F 98.3 F Pulse Rate 84 75 Respiratory 18 18 18 Rate Blood Pressure Blood Pressure 122/75 105/65 [Right] O2 Sat by Pulse 96 99 Oximetry 06/23/20 06/24/20 06/24/20 22:42 05:14 08:03 Temperature 98 F 98.4 F 98 F Pulse Rate 70 76 82 Respiratory 14 14 18 Rate Blood Pressure Blood Pressure 124/79 118/70 120/70 [Right] O2 Sat by Pulse 98 98 98 Oximetry Lab Results 06/22/20 06/22/20 06/22/20 Range/Units 19:58 19:58 19:58 WBC 4.1 L (4.5-11.0) K/mm3 RBC 4.35 (3.65-5.03) M/mm3 Hgb 14.4 (11.8-15.2) gm/dl Hct 42.2 (35.5-45.6) % MCV 97 H (84-94) fl MCH 33 H (28-32) pg MCHC 34 (32-34) % RDW 13.6 (13.2-15.2) % Plt Count 135 L (140-440) K/mm3 Add Manual Diff Complete Total Counted 100 Seg Neuts % (Manual) 38.0 L (40.0-70.0) % Lymphocytes % (Manual) 39.0 H (13.4-35.0) % Monocytes % (Manual) 16.0 H (0.0-7.3) % Eosinophils % (Manual) 6.0 H (0.0-4.3) % Basophils % (Manual) 1.0 (0.0-1.8) % Nucleated RBC % Not Reportable Seg Neutrophils # Man 1.6 L (1.8-7.7) K/mm3 Band Neutrophils # 0.0 K/mm3 Lymphocytes # (Manual) 1.6 (1.2-5.4) K/mm3 Abs React Lymphs (Man) 0.0 K/mm3 Monocytes # (Manual) 0.7 (0.0-0.8) K/mm3 Eosinophils # (Manual) 0.2 (0.0-0.4) K/mm3 Basophils # (Manual) 0.0 (0.0-0.1) K/mm3 Metamyelocytes # 0.0 K/mm3 Myelocytes # 0.0 K/mm3 Promyelocytes # 0.0 K/mm3 Blast Cells # 0.0 K/mm3 WBC Morphology Not Reportable Hypersegmented Neuts Not Reportable Hyposegmented Neuts Not Reportable Hypogranular Neuts Not Reportable Smudge Cells Not Reportable Toxic Granulation Not Reportable Toxic Vacuolation Not Reportable Dohle Bodies Not Reportable Pelger-Huet Anomaly Not Reportable Edwina Rods Not Reportable Platelet Estimate Not Reportable Clumped Platelets Not Reportable Plt Clumps, EDTA Not Reportable Large Platelets Not Reportable Giant Platelets Not Reportable Platelet Satelliting Not Reportable Plt Morphology Comment Not Reportable RBC Morphology Normal Dimorphic RBCs Not Reportable Polychromasia Not Reportable Hypochromasia Not Reportable Poikilocytosis Not Reportable Anisocytosis Not Reportable Microcytosis Not Reportable Macrocytosis Not Reportable Spherocytes Not Reportable Pappenheimer Bodies Not Reportable Sickle Cells Not Reportable Target Cells Not Reportable Tear Drop Cells Not Reportable Ovalocytes Not Reportable Helmet Cells Not Reportable Farmer-Somersworth Bodies Not Reportable Arbyrd Rings Not Reportable Estrada Cells Not Reportable Bite Cells Not Reportable Crenated Cell Not Reportable Elliptocytes Not Reportable Acanthocytes (Spur) Not Reportable Rouleaux Not Reportable Hemoglobin C Crystals Not Reportable Schistocytes Not Reportable Malaria parasites Not Reportable Humberto Bodies Not Reportable Hem Pathologist Commnt No Sodium 136 L (137-145) mmol/L Potassium 4.0 (3.6-5.0) mmol/L Chloride 102.4 (98-107) mmol/L Carbon Dioxide 29 (22-30) mmol/L Anion Gap 9 mmol/L BUN 13 (9-20) mg/dL Creatinine 1.0 (0.8-1.3) mg/dL Estimated GFR > 60 ml/min BUN/Creatinine Ratio 13 % Glucose 84 (75-100) mg/dL Calcium 9.2 (8.4-10.2) mg/dL Total Bilirubin 0.40 (0.1-1.2) mg/dL AST 25 (5-40) units/L ALT 15 (7-56) units/L Alkaline Phosphatase 54 (35-129) units/L Lactate Dehydrogenase (91-180) units/L Total Protein 6.9 (6.3-8.2) g/dL Albumin 3.9 (3.9-5) g/dL Albumin/Globulin Ratio 1.3 % Urine Color (Yellow) Urine Turbidity (Clear) Urine pH (5.0-7.0) Ur Specific [place] (1.003-1.030) Urine Protein (Negative) mg/dL Urine Glucose (UA) (Negative) mg/dL Urine Ketones (Negative) mg/dL Urine Blood (Negative) Urine Nitrite (Negative) Urine Bilirubin (Negative) Urine Urobilinogen (<2.0) mg/dL Ur Leukocyte Esterase (Negative) Urine WBC (Auto) (0.0-6.0) /HPF Urine RBC (Auto) (0.0-6.0) /HPF Urine Bacteria (Auto) (Negative) /HPF Salicylates < 0.3 L (2.8-20.0) mg/dL Urine Opiates Screen Urine Methadone Screen Acetaminophen (10.0-30.0) ug/mL Ur Barbiturates Screen Ur Phencyclidine Scrn Ur Amphetamines Screen U Benzodiazepines Scrn Urine Cocaine Screen U Marijuana (THC) Screen Drugs of Abuse Note Plasma/Serum Alcohol (0-0.07) % 06/22/20 06/22/20 06/22/20 Range/Units 19:58 19:58 Unknown WBC (4.5-11.0) K/mm3 RBC (3.65-5.03) M/mm3 Hgb (11.8-15.2) gm/dl Hct (35.5-45.6) % MCV (84-94) fl MCH (28-32) pg MCHC (32-34) % RDW (13.2-15.2) % Plt Count (140-440) K/mm3 Add Manual Diff Total Counted Seg Neuts % (Manual) (40.0-70.0) % Lymphocytes % (Manual) (13.4-35.0) % Monocytes % (Manual) (0.0-7.3) % Eosinophils % (Manual) (0.0-4.3) % Basophils % (Manual) (0.0-1.8) % Nucleated RBC % Seg Neutrophils # Man (1.8-7.7) K/mm3 Band Neutrophils # K/mm3 Lymphocytes # (Manual) (1.2-5.4) K/mm3 Abs React Lymphs (Man) K/mm3 Monocytes # (Manual) (0.0-0.8) K/mm3 Eosinophils # (Manual) (0.0-0.4) K/mm3 Basophils # (Manual) (0.0-0.1) K/mm3 Metamyelocytes # K/mm3 Myelocytes # K/mm3 Promyelocytes # K/mm3 Blast Cells # K/mm3 WBC Morphology Hypersegmented Neuts Hyposegmented Neuts Hypogranular Neuts Smudge Cells Toxic Granulation Toxic Vacuolation Dohle Bodies Pelger-Huet Anomaly Edwina Rods Platelet Estimate Clumped Platelets Plt Clumps, EDTA Large Platelets Giant Platelets Platelet Satelliting Plt Morphology Comment RBC Morphology Dimorphic RBCs Polychromasia Hypochromasia Poikilocytosis Anisocytosis Microcytosis Macrocytosis Spherocytes Pappenheimer Bodies Sickle Cells Target Cells Tear Drop Cells Ovalocytes Helmet Cells Farmer-Somersworth Bodies Arbyrd Rings [place] Cells Bite Cells Crenated Cell Elliptocytes Acanthocytes (Spur) Rouleaux Hemoglobin C Crystals Schistocytes Malaria parasites Humberto Bodies Hem Pathologist Commnt Sodium (137-145) mmol/L Potassium (3.6-5.0) mmol/L Chloride (98-107) mmol/L Carbon Dioxide (22-30) mmol/L Anion Gap mmol/L BUN (9-20) mg/dL Creatinine (0.8-1.3) mg/dL Estimated GFR ml/min BUN/Creatinine Ratio % Glucose (75-100) mg/dL Calcium (8.4-10.2) mg/dL Total Bilirubin (0.1-1.2) mg/dL AST (5-40) units/L ALT (7-56) units/L Alkaline Phosphatase (35-129) units/L Lactate Dehydrogenase (91-180) units/L Total Protein (6.3-8.2) g/dL Albumin (3.9-5) g/dL Albumin/Globulin Ratio % Urine Color Straw (Yellow) Urine Turbidity Clear (Clear) Urine pH 7.0 (5.0-7.0) Ur Specific [place] 1.004 (1.003-1.030) Urine Protein <15 mg/dl (Negative) mg/dL Urine Glucose (UA) Neg (Negative) mg/dL Urine Ketones Neg (Negative) mg/dL Urine Blood Neg (Negative) Urine Nitrite Neg (Negative) Urine Bilirubin Neg (Negative) Urine Urobilinogen < 2.0 (<2.0) mg/dL Ur Leukocyte Esterase Neg (Negative) Urine WBC (Auto) < 1.0 (0.0-6.0) /HPF Urine RBC (Auto) 1.0 (0.0-6.0) /HPF Urine Bacteria (Auto) 3+ (Negative) /HPF Salicylates (2.8-20.0) mg/dL Urine Opiates Screen Urine Methadone Screen Acetaminophen 5.0 L (10.0-30.0) ug/mL Ur Barbiturates Screen Ur Phencyclidine Scrn Ur Amphetamines Screen U Benzodiazepines Scrn Urine Cocaine Screen U Marijuana (THC) Screen Drugs of Abuse Note Plasma/Serum Alcohol < 0.01 (0-0.07) % 06/22/20 06/23/20 Range/Units Unknown 15:30 WBC (4.5-11.0) K/mm3 RBC (3.65-5.03) M/mm3 Hgb (11.8-15.2) gm/dl Hct (35.5-45.6) % MCV (84-94) fl MCH (28-32) pg MCHC (32-34) % RDW (13.2-15.2) % Plt Count (140-440) K/mm3 Add Manual Diff Total Counted Seg Neuts % (Manual) (40.0-70.0) % Lymphocytes % (Manual) (13.4-35.0) % Monocytes % (Manual) (0.0-7.3) % Eosinophils % (Manual) (0.0-4.3) % Basophils % (Manual) (0.0-1.8) % Nucleated RBC % Seg Neutrophils # Man (1.8-7.7) K/mm3 Band Neutrophils # K/mm3 Lymphocytes # (Manual) (1.2-5.4) K/mm3 Abs React Lymphs (Man) K/mm3 Monocytes # (Manual) (0.0-0.8) K/mm3 Eosinophils # (Manual) (0.0-0.4) K/mm3 Basophils # (Manual) (0.0-0.1) K/mm3 Metamyelocytes # K/mm3 Myelocytes # K/mm3 Promyelocytes # K/mm3 Blast Cells # K/mm3 WBC Morphology Hypersegmented Neuts Hyposegmented Neuts Hypogranular Neuts Smudge Cells Toxic Granulation Toxic Vacuolation Dohle Bodies Pelger-Huet Anomaly Edwina Rods Platelet Estimate Clumped Platelets Plt Clumps, EDTA Large Platelets Giant Platelets Platelet Satelliting Plt Morphology Comment RBC Morphology Dimorphic RBCs Polychromasia Hypochromasia Poikilocytosis Anisocytosis Microcytosis Macrocytosis Spherocytes Pappenheimer Bodies Sickle Cells Target Cells Tear Drop Cells Ovalocytes Helmet Cells Farmer-Somersworth Bodies Arbyrd Rings Estrada Cells Bite Cells Crenated Cell Elliptocytes Acanthocytes (Spur) Rouleaux Hemoglobin C Crystals Schistocytes Malaria parasites Humberto Bodies Hem Pathologist Commnt Sodium (137-145) mmol/L Potassium (3.6-5.0) mmol/L Chloride (98-107) mmol/L Carbon Dioxide (22-30) mmol/L Anion Gap mmol/L BUN (9-20) mg/dL Creatinine (0.8-1.3) mg/dL Estimated GFR ml/min BUN/Creatinine Ratio % Glucose (75-100) mg/dL Calcium (8.4-10.2) mg/dL Total Bilirubin (0.1-1.2) mg/dL AST (5-40) units/L ALT (7-56) units/L Alkaline Phosphatase (35-129) units/L Lactate Dehydrogenase 221 H (91-180) units/L Total Protein (6.3-8.2) g/dL Albumin (3.9-5) g/dL Albumin/Globulin Ratio % Urine Color (Yellow) Urine Turbidity (Clear) Urine pH (5.0-7.0) Ur Specific [place] (1.003-1.030) Urine Protein (Negative) mg/dL Urine Glucose (UA) (Negative) mg/dL Urine Ketones (Negative) mg/dL Urine Blood (Negative) Urine Nitrite (Negative) Urine Bilirubin (Negative) Urine Urobilinogen (<2.0) mg/dL Ur Leukocyte Esterase (Negative) Urine WBC (Auto) (0.0-6.0) /HPF Urine RBC (Auto) (0.0-6.0) /HPF Urine Bacteria (Auto) (Negative) /HPF Salicylates (2.8-20.0) mg/dL Urine Opiates Screen Negative Urine Methadone Screen Negative Acetaminophen (10.0-30.0) ug/mL Ur Barbiturates Screen Negative Ur Phencyclidine Scrn Negative Ur Amphetamines Screen Negative U Benzodiazepines Scrn Negative Urine Cocaine Screen Negative U Marijuana (THC) Screen Negative Drugs of Abuse Note Disclamer Plasma/Serum Alcohol (0-0.07) %
== END 2020-06-24 12:22 | disposition home health service (06) ==
LOC: ED 19:26
DX: F29 Unspecified psychosis not due to a substance or known physiological condition (principal); I10 Essential (primary) hypertension; J45.909 Unspecified asthma, uncomplicated; F25.0 Schizoaffective disorder, bipolar type; Z79.899 Other long term (current) drug therapy; Z91.013 Allergy to seafood
CPT/HCPCS: 36415; 80053; 80307; 80320; 81001; 83615; 85007; 85025; G0480

== ENCOUNTER 2020-07-22 03:57 | Emergency (ER) | payer MEDICARE ==
[2020-07-22 05:44] LABS: Hematocrit 41.7 % (35.5-45.6); Hemoglobin 14.2 gm/dl (11.8-15.2); Mean Corpuscular HGB Conc 34 % (32-34); Mean Corpuscular Volume 97 fl (84-94); Platelet Count 171 K/mm3 (140-440); Red Blood Count 4.31 M/mm3 (3.65-5.03)
[2020-07-22 05:58] LABS: BUN/Creatinine Ratio 14; Blood Urea Nitrogen 14 mg/dL (9-20); Calcium 9.1 mg/dL (8.4-10.2); Hemolysis Index 76
[2020-07-22 06:59] LABS: Platelet Estimate Consistent w Auto; Total Cells Counted 100
--- NOTE | 2020-07-22 08:58 | Emergency Department Report ---
ED Psych HPI - General Chief Complaint: Psych Stated Complaint: ANJALI UMANA Time Seen by Provider: 07/22/20 08:41 Source: patient Mode of arrival: Ambulatory - History of Present Illness Initial Comments: Chief complaint: " I am feeling paranoid schizophrenia." HPI: This is a 34-year-old male with history of paranoid schizophrenia, major depression disorder, hypertension, asthma, bipolar disorder who presents with "paranoid schizophrenia. I feel I need to leave the [facility] because of pressure to do drugs." Patient states that he hears voices. The voices are telling him to do drugs. He denies history of substance abuse. He denies suicidal homicidal ideation. [facility] currently lives at a [facility]. MD Complaint: other (Auditory hallucinations) -: Gradual, days(s) (Several days) Associated Psychiatric Symptoms: auditory hallucinations History of same: Yes Quality: constant Improves With: none Worsens With: none Associated Symptoms: denies other symptoms Treatments Prior to Arrival: none - Related Data Home Medications Medication Instructions Recorded Confirmed Last Taken Paliperidone Palmitate [Invega 1 mg IM QMONTH 12/25/19 06/24/20 Unknown Sustenna] Allergies Allergy/AdvReac Type Severity Reaction Status Date / Time shellfish derived Allergy Anaphylaxis Verified 12/25/19 01:53 ED Review of Systems ROS: Stated complaint: ANJALI EVAL Other details as noted in HPI Comment: All other systems reviewed and negative Constitutional: denies: fever, malaise ENT: denies: dental pain Cardiovascular: denies: chest pain Gastrointestinal: denies: abdominal pain, nausea, vomiting Psychiatric: auditory hallucinations ED Past Medical Hx - Past Medical History Previous Medical History?: Yes Hx Hypertension: Yes Hx Psychiatric Treatment: Yes (MDD, Paranoid Schizophrenia, bipolar) Hx Asthma: Yes Additional medical history: DENIES - Surgical History Past Surgical History?: Yes Additional Surgical History: unknown - Social History Smoking Status: Never Smoker Substance Use Type: None - Medications Home Medications: Home Medications Medication Instructions Recorded Confirmed Last Taken Type Paliperidone Palmitate [Invega 1 mg IM QMONTH 12/25/19 06/24/20 Unknown History Sustenna] ED Physical Exam - General Limitations: No Limitations General appearance: alert, in no apparent distress, other (Calm cooperative) - Head Head exam: Present: atraumatic, normocephalic - Eye Eye exam: Present: normal appearance. Absent: scleral icterus, conjunctival in jection - ENT ENT exam: Present: mucous membranes moist - Neck Neck exam: Present: normal inspection, full ROM - Respiratory Respiratory exam: Present: normal lung sounds bilaterally. Absent: respiratory distress, wheezes, rales - Cardiovascular Cardiovascular Exam: Present: regular rate, normal rhythm, normal heart sounds. Absent: systolic murmur, diastolic murmur, rubs, gallop - GI/Abdominal GI/Abdominal exam: Present: soft, normal bowel sounds. Absent: distended, tenderness, guarding, rebound - Rectal Rectal exam: Present: deferred - Extremities Exam Extremities exam: Present: normal inspection - Neurological Exam Neurological exam: Present: alert, oriented X3 - Psychiatric Psychiatric exam: Present: normal affect, normal mood - Skin Skin exam: Present: warm, dry, intact, normal color. Absent: rash ED Course Vital Signs 07/22/20 07/22/20 07/22/20 04:05 04:06 04:07 Temperature 97.9 F 97.9 F Pulse Rate 74 72 Respiratory 18 18 Rate Blood Pressure 106/70 Blood Pressure [Right] O2 Sat by Pulse 98 99 Oximetry 07/22/20 07/22/20 07/22/20 04:08 08:40 08:55 Temperature Pulse Rate 72 18 L Respiratory 16 16 Rate Blood Pressure Blood Pressure 122/79 [Right] O2 Sat by Pulse 100 98 Oximetry ED Medical Decision Making - Lab Data Result diagrams: 07/22/20 05:12 07/22/20 05:12 Laboratory Results - last 24 hr 07/22/20 07/22/20 07/22/20 05:12 05:12 05:12 WBC 4.3 L RBC 4.31 Hgb 14.2 Hct 41.7 MCV 97 H MCH 33 H MCHC 34 RDW 14.0 Plt Count 171 Add Manual Diff Complete Total Counted 100 Seg Neutrophils % [employer] Seg Neuts % (Manual) 33.0 L Lymphocytes % (Manual) 50.0 H Monocytes % (Manual) 12.0 H Eosinophils % (Manual) 5.0 H Nucleated RBC % Not Reportable Seg Neutrophils # Man 1.4 L Band Neutrophils # 0.0 Lymphocytes # (Manual) 2.2 Abs React Lymphs (Man) 0.0 Monocytes # (Manual) 0.5 Eosinophils # (Manual) 0.2 Basophils # (Manual) 0.0 Metamyelocytes # 0.0 Myelocytes # 0.0 Promyelocytes # 0.0 Blast Cells # 0.0 WBC Morphology Not Reportable Hypersegmented Neuts Not Reportable Hyposegmented Neuts Not Reportable Hypogranular Neuts Not Reportable Smudge Cells Not Reportable Toxic Granulation Not Reportable Toxic Vacuolation Not Reportable Dohle Bodies Not Reportable Pelger-Huet Anomaly Not Reportable Edwina Rods Not Reportable Platelet Estimate Consistent w auto Clumped Platelets Not Reportable Plt Clumps, EDTA Not Reportable Large Platelets Not Reportable Giant Platelets Not Reportable Platelet Satelliting Not Reportable Plt Morphology Comment Not Reportable RBC Morphology Not Reportable Dimorphic RBCs Not Reportable Polychromasia Not Reportable Hypochromasia Not Reportable Poikilocytosis Not Reportable Anisocytosis Not Reportable Microcytosis Not Reportable Macrocytosis Not Reportable Spherocytes Not Reportable Pappenheimer Bodies Not Reportable Sickle Cells Not Reportable Target Cells Not Reportable Tear Drop Cells Not Reportable Ovalocytes Not Reportable Helmet Cells Not Reportable Farmer-[place] Bodies Not Reportable Elba Rings Not Reportable [place] Cells Not Reportable Bite Cells Not Reportable Crenated Cell Not Reportable Elliptocytes Not Reportable Acanthocytes (Spur) Not Reportable Rouleaux Not Reportable Hemoglobin C Crystals Not Reportable Schistocytes Not Reportable Malaria parasites Not Reportable Humberto Bodies Not Reportable Hem Pathologist Commnt No Sodium 140 Potassium 4.4 Chloride 102.5 Carbon Dioxide 30 Anion Gap 12 BUN 14 Creatinine 1.0 Estimated GFR > 60 BUN/Creatinine Ratio 14 Glucose 81 Calcium 9.1 Plasma/Serum Alcohol < 0.01 - Medical Decision Making Mr. Jimenez is a 34-year-old male with history of paranoid schizophrenia major depressive disorder and bipolar disorder who presents with auditory hallucinations. He appears calm. He makes good eye contact. He has meri ropriate insight. He does not appear to be a harm to himself or others. Awaiting consultation by mental health team for treatment recommendations. I have reviewed labs. Patient is medically clear for psychiatric care. Urine toxicology negative urinalysis without evidence of infection. CBC chemistry within normal limits inpatient psychiatric hospitalization recommended by mental health team. I have completed 1013 form in order to initiate transfer to outside psychiatric facility. Patient will be held involuntarily. He is cooperative and agrees with treatment plan. Critical care attestation.: If time is entered above; I have spent that time in minutes in the direct care of this critically ill patient, excluding procedure time. ED Disposition Clinical Impression: Acute psychosis, Paranoid schizophrenia Disposition: DC/TX-70 ANOTHER TYPE HLTHCARE Is pt being admited?: No Does the pt Need Aspirin: No Condition: Stable
[2020-07-22 09:33] LABS: Amphetamine Screen,Urine Negative; Benzodiazepines Screen,Urine Negative; Cannabinoid Screen,Urine Negative; Cocaine Screen,Urine Negative; Methadone Screen,Urine Negative; Opiate Screen,Urine Negative
[2020-07-22 09:39] LABS: Bilirubin,Urine NEG (Negative); Blood,Urine NEG (Negative); Color,Urine Yellow (Yellow); Mucus,Urine FEW /HPF; Protein,Urine <15 mg/dL mg/dL (Negative); Urobilinogen,Urine < 2.0 mg/dL (<2.0)
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
[2020-07-22 11:43] VITALS: BP 129/92
== END 2020-07-22 11:57 | disposition home or self-care (01) ==
LOC: ED 03:57
DX: F23 Brief psychotic disorder (principal); I10 Essential (primary) hypertension; J45.909 Unspecified asthma, uncomplicated; Z79.899 Other long term (current) drug therapy; Z91.013 Allergy to seafood
CPT/HCPCS: 36415; 80048; 80307; 80320; 81001; 85007; 85025; G0480

== ENCOUNTER 2020-08-16 05:08 | Emergency (ER) | payer MEDICARE ==
[2020-08-16 08:02] LABS: Basophils % (Auto) 0.7 % (0.0-1.8); Eosinophils # (Auto) 0.2 K/mm3 (0.0-0.4); Eosinophils % (Auto) 5.8 % (0.0-4.3); Hematocrit 40.1 % (35.5-45.6); Hemoglobin 13.5 gm/dl (11.8-15.2); Lymphocytes # (Auto) 1.3 K/mm3 (1.2-5.4); Lymphocytes % (Auto) 33.6 % (13.4-35.0); Mean Corpuscular HGB Conc 34 % (32-34); Mean Corpuscular Volume 98 fl (84-94); Monocytes # (Auto) 0.5 K/mm3 (0.0-0.8); Monocytes % (Auto) 12.6 % (0.0-7.3); Platelet Count 183 K/mm3 (140-440); Red Blood Count 4.11 M/mm3 (3.65-5.03); Red Cell Distribution Width 14.2 % (13.2-15.2)
[2020-08-16 08:05] LABS: BUN/Creatinine Ratio 11; Blood Urea Nitrogen 10 mg/dL (9-20); Calcium 9.2 mg/dL (8.4-10.2); Hemolysis Index 4
[2020-08-16 08:18] LABS: Amphetamine Screen,Urine Negative; Benzodiazepines Screen,Urine Negative; Cannabinoid Screen,Urine Negative; Cocaine Screen,Urine Negative; Methadone Screen,Urine Negative; Opiate Screen,Urine Negative
[2020-08-16 08:26] LABS: Bilirubin,Urine NEG (Negative); Blood,Urine NEG (Negative); Color,Urine Yellow (Yellow); Mucus,Urine FEW /HPF; Protein,Urine <15 mg/dL mg/dL (Negative); RBC,Urine < 1.0 /HPF (0.0-6.0); Sperm,Urine FEW /HPF (NP); WBC,Urine < 1.0 /HPF (0.0-6.0)
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
[2020-08-16] MEDS ORDERED: ZIPRASIDONE MESYLATE 20 MG VIAL IM PRN (09:24)
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
[2020-08-16] MEDS ORDERED: ACETAMINOPHEN 325 MG TAB PO PRN (10:20)
[2020-08-16] MEDS ORDERED: ALUM-MAG HYDROXIDE-SIMETHICONE 200-200-20MG/5ML ORAL LIQD 30 ML PO PRN (10:20)
[2020-08-16] MEDS ORDERED: MAGNESIUM HYDROXIDE (MOM) ORAL LIQD UDC PO PRN (10:20)
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
[2020-08-16] MEDS: DIVALPROEX DR 500 MG TAB PO SCH ×2 (20:30→20:31)
[2020-08-16] MEDS: SERTRALINE 25 MG TAB PO SCH (20:30)
[2020-08-16] MEDS: risperiDONE 0.25 MG TAB PO SCH ×2 (20:31→21:33)
[2020-08-16] MEDS: traZODone 50 MG TAB PO SCH (21:33)
[2020-08-17] MEDS: DIVALPROEX DR 500 MG TAB PO SCH ×3 (08:46→21:10)
--- NOTE | 2020-08-17 09:54 | Progress Note ---
Subjective Date of service: 08/17/20 Principal diagnosis: SI/Hallucinations Subjective Comment: The patient was seen today. He says he is "not going good." He verbalizes SI/HI with no plan. The patient says he is hearing voices telling him "If I go back somebody is going to hurt me." He says he feels "unsafe and afraid." The patient says "there's a staff member he might hurt me." REVIEW OF SYSTEMS Constitutional: Negative for weight loss ENT: Negative for stridor Respiratory: Negative for cough or hemoptysis All other systems reviewed and are negative MENTAL STATUS EXAMINATION General Appearance: Dressed appropriately Behavior: anxious and uncooperative at times. fair eye contact Mood: "afraid, feels unsafe" Affect and affective range: Congruent with stated mood Thought Process: Goal directed Speech: low tone, normal pace Thought Content: Suicidal Ideation: Yes Homicidal Ideation: Yes Hallucinations: Auditory Delusions: None elicited Insight and Judgment: Limited Memory/Cognition: Limited Attention: Normal Assessment: Bipolar RECOMMENDATIONS 1013 Agree with case management consult Continue home meds Increase Risperidone 0.5mg po BID Risks, benefits and alternatives of medications discussed with the patient, questions answered and consent obtained from patient. PSYCHOTHERAPY: Supportive psychotherapy provided MEDICAL: Per primary team DELIRIUM PRECAUTIONS: Please re-orient patient frequently, keep lights on during the day, and minimize benzodiazepines and opiates as these medications could worsen patient's confusion. 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 Please contact with any questions and/or concerns. Case discussed with Dr. Elam Medications and Allergies Allergies Allergy/AdvReac Type Severity Reaction Status Date / Time shellfish derived Allergy Anaphylaxis Verified 12/25/19 01:53 Home Medications Medication Instructions Recorded Confirmed Last Taken Type Paliperidone Palmitate [Invega 1 mg IM QMONTH 12/25/19 06/24/20 Unknown History Sustenna] Active Meds: Active Medications Acetaminophen (Acetaminophen 325 Mg Tab) 650 mg PO Q4HR PRN PRN Reason: Pain MILD(1-3)/Fever >100.5/BOOKER Al Hydrox/Mg Hydrox/Simethicone (Alum-Mag Hydroxide-Simethicone [phone]/5ml Oral Liqd 30 Ml) 30 ml PO Q4HR PRN PRN Reason: Indigestion Divalproex Sodium (Divalproex Dr 500 Mg Tab) 500 mg PO TID [facility] Last Admin: 08/17/20 08:46 Dose: 500 mg Documented by: Magnesium Hydroxide (Magnesium Hydroxide (Mom) Oral Liqd Udc) 30 ml PO Q12HR PRN PRN Reason: Constipation Risperidone (Risperidone 0.25 Mg Tab) 0.25 mg PO BID [facility] Last Admin: 08/16/20 21:33 Dose: 0.25 mg Documented by: Sertraline HCl (Sertraline 25 Mg Tab) 25 mg PO DAILY [facility] Last Admin: 08/16/20 20:30 Dose: 25 mg Documented by: Trazodone HCl (Trazodone 50 Mg Tab) 50 mg PO QHS [facility] Last Admin: 08/16/20 21:33 Dose: 50 mg Documented by: Ziprasidone (Ziprasidone Mesylate 20 Mg Vial) 10 mg IM Q12H PRN PRN Reason: Agitation Results - Results Labs/Vitals: Laboratory Last Values WBC 4.0 K/mm3 (4.5-11.0) L 08/16/20 06:52 RBC 4.11 M/mm3 (3.65-5.03) 08/16/20 06:52 Hgb 13.5 gm/dl (11.8-15.2) 08/16/20 06:52 Hct 40.1 % (35.5-45.6) 08/16/20 06:52 MCV 98 fl (84-94) H 08/16/20 06:52 MCH 33 pg (28-32) H 08/16/20 06:52 MCHC 34 % (32-34) 08/16/20 06:52 RDW 14.2 % (13.2-15.2) 08/16/20 06:52 Plt Count 183 K/mm3 (140-440) 08/16/20 06:52 Lymph % (Auto) 33.6 % (13.4-35.0) 08/16/20 06:52 [place] % (Auto) 12.6 % (0.0-7.3) H 08/16/20 06:52 Eos % (Auto) 5.8 % (0.0-4.3) H 08/16/20 06:52 Baso % (Auto) 0.7 % (0.0-1.8) 08/16/20 06:52 Lymph # (Auto) 1.3 K/mm3 (1.2-5.4) 08/16/20 06:52 [place] # (Auto) 0.5 K/mm3 (0.0-0.8) 08/16/20 06:52 Eos # (Auto) 0.2 K/mm3 (0.0-0.4) 08/16/20 06:52 Baso # (Auto) 0.0 K/mm3 (0.0-0.1) 08/16/20 06:52 Seg Neutrophils % 47.3 % (40.0-70.0) 08/16/20 06:52 Seg Neutrophils # 1.9 K/mm3 (1.8-7.7) 08/16/20 06:52 Sodium 140 mmol/L (137-145) 08/16/20 06:52 Potassium 3.8 mmol/L (3.6-5.0) 08/16/20 06:52 Chloride 102.2 mmol/L (98-107) 08/16/20 06:52 Carbon Dioxide 29 mmol/L (22-30) 08/16/20 06:52 Anion Gap 13 mmol/L 08/16/20 06:52 BUN 10 mg/dL (9-20) 08/16/20 06:52 Creatinine 0.9 mg/dL (0.8-1.3) 08/16/20 06:52 Estimated GFR > 60 ml/min 08/16/20 06:52 BUN/Creatinine Ratio 11 % 08/16/20 06:52 Glucose 75 mg/dL (75-100) 08/16/20 06:52 Calcium 9.2 mg/dL (8.4-10.2) 08/16/20 06:52 Urine Color Yellow (Yellow) 08/16/20 07:40 Urine Turbidity Clear (Clear) 08/16/20 07:40 Urine pH 6.0 (5.0-7.0) 08/16/20 07:40 Ur Specific [place] 1.008 (1.003-1.030) 08/16/20 07:40 Urine Protein <15 mg/dl mg/dL (Negative) 08/16/20 07:40 Urine Glucose (UA) Neg mg/dL (Negative) 08/16/20 07:40 Urine Ketones Neg mg/dL (Negative) 08/16/20 07:40 Urine Blood Neg (Negative) 08/16/20 07:40 Urine Nitrite Neg (Negative) 08/16/20 07:40 Urine Bilirubin Neg (Negative) 08/16/20 07:40 Urine Urobilinogen 4.0 mg/dL (<2.0) 08/16/20 07:40 Ur Leukocyte Esterase Neg (Negative) 08/16/20 07:40 Urine WBC (Auto) < 1.0 /HPF (0.0-6.0) 08/16/20 07:40 Urine RBC (Auto) < 1.0 /HPF (0.0-6.0) 08/16/20 07:40 Urine Mucus Few /HPF 08/16/20 07:40 Urine Sperm Few /HPF (KETTLE WORKER) 08/16/20 07:40 Salicylates < 0.3 mg/dL (2.8-20.0) L 08/16/20 06:52 Urine Opiates Screen Negative 08/16/20 07:40 Urine Methadone Screen Negative 08/16/20 07:40 Acetaminophen 5.0 ug/mL (10.0-30.0) L 08/16/20 06:52 Ur Barbiturates Screen Negative 08/16/20 07:40 Valproic Acid 4.5 ug/mL (50-100) L 08/16/20 11:29 Ur Phencyclidine Scrn Negative 08/16/20 07:40 Ur Amphetamines Screen Negative 08/16/20 07:40 U Benzodiazepines Scrn Negative 08/16/20 07:40 Urine Cocaine Screen Negative 08/16/20 07:40 U Marijuana (THC) Screen Negative 08/16/20 07:40 Drugs of Abuse Note Disclamer 08/16/20 07:40 Plasma/Serum Alcohol < 0.01 % (0-0.07) 08/16/20 06:52 Last Vital Signs Temp 98.0 F 08/17/20 04:54 Pulse 74 08/17/20 04:54 Resp 18 08/17/20 04:54 BP 118/73 08/17/20 04:54 Pulse Ox 96 08/17/20 04:54
[2020-08-17] MEDS: risperiDONE 0.25 MG TAB PO SCH ×2 (10:04→21:37)
[2020-08-17] MEDS: SERTRALINE 25 MG TAB PO SCH (10:04)
[2020-08-17] MEDS: traZODone 50 MG TAB PO SCH (21:38)
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
[2020-08-18] MEDS: SERTRALINE 25 MG TAB PO SCH (10:24)
[2020-08-18] MEDS: DIVALPROEX DR 500 MG TAB PO SCH ×3 (10:24→21:40)
[2020-08-18] MEDS: risperiDONE 1 MG TAB PO SCH ×2 (10:24→21:42)
[2020-08-18] MEDS: traZODone 50 MG TAB PO SCH (21:41)
[2020-08-19] MEDS ORDERED: DIVALPROEX DR 250 MG TAB ONE (07:42)
[2020-08-19] MEDS: DIVALPROEX DR 500 MG TAB PO SCH ×2 (07:53→14:40)
[2020-08-19] MEDS: SERTRALINE 25 MG TAB PO SCH (10:41)
[2020-08-19] MEDS: risperiDONE 1 MG TAB PO SCH (10:41)
--- NOTE | 2020-08-19 11:42 | Progress Note ---
Subjective - Reason for Consult Consult date: 08/19/20 Reason for consult: SI - Chief Complaint Chief complaint: Per Nurse: The nurse caring for the patient states he's been sleeping, been calm and cooperative with no behavioral issues. The patient was seen today. He is lying down awake. He is calm and cooperative. The patient verbalizes "not feeling good," when asking him how ohe felt. He says "I don't have any options but to be in the streets." The patient now denies SI/HI. He says "but I still hear the voices." When asking the patient what were the voices saying, he replies "get help or be in the streets." The patient says he hears the voices "from time to time." The patient states he's "not happy at his residential." He says "people don't like me there and I'm scared they might try to hurt me." The patient says "I need help to get a housing voucher." REVIEW OF SYSTEMS Constitutional: Negative for weight loss ENT: Negative for stridor Respiratory: Negative for cough or hemoptysis All other systems reviewed and are negative MENTAL STATUS EXAMINATION General Appearance: Dressed appropriately Behavior: Calm, cooperative, good eye contact. Mood: not good Affect and affective range: Restricted Thought Process: goal directed Speech: low tone, normal pace Thought Content: Suicidal Ideation: Denies Homicidal Ideation: Denies Hallucinations: Auditory Delusions: None elicited Insight and Judgment: Limited Memory/Cognition: Limited Attention: Normal Assessment: Bipolar RECOMMENDATIONS d/c 1013 case management consult to look into residential and find placement for the patient Depakote DR 500mg po TID Trazodone 50mg po qhs Zoloft 25mg po daily Risks, benefits and alternatives of medications discussed with the patient, questions answered and consent obtained from patient. PSYCHOTHERAPY: Supportive psychotherapy provided MEDICAL: Per primary team DELIRIUM PRECAUTIONS: Please re-orient patient frequently, keep lights on during the day, and minimize benzodiazepines and opiates as these medications could worsen patient's confusion. 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 His symptoms seem to correlate with his stated issues at his present residential. Do not recommend acute inpatient psychiatric hospitalization at this time Thank you for the consult. Please contact with any questions and/or concerns. Homicide Squad Lieutenant to give outpatient resources, CBT The patient to follow up with outpatient psych or primary in 7 to 14 days upon discharge Will sign off. Thank you for this consult Case discussed with Dr. Elam Mental Status Exam - Vital signs Last Vital Signs Temp 97.6 F 08/19/20 05:05 Pulse 64 08/19/20 05:05 Resp 18 08/19/20 05:05 BP 104/65 08/19/20 05:05 Pulse Ox 100 08/19/20 05:05
[2020-08-19 20:13] VITALS: BP 108/64
== END 2020-08-19 20:10 | disposition home or self-care (01) ==
LOC: ED 05:08 → EEVIPCON 05:08 → ED 08-19 20:10
DX: F20.0 Paranoid schizophrenia (principal); I10 Essential (primary) hypertension; J45.909 Unspecified asthma, uncomplicated; Z79.899 Other long term (current) drug therapy; Z91.013 Allergy to seafood; Z20.822 Contact with and (suspected) exposure to COVID-19
CPT/HCPCS: 36415; 80048; 80164; 80307; 81001; 85025; 99284; U0003; 80320; G0480

== ENCOUNTER 2020-09-28 04:27 | Emergency (ER) | payer MEDICARE ==
[2020-09-28 05:11] VITALS: BP 110/69
[2020-09-28 05:58] LABS: Hematocrit 41.9 % (35.5-45.6); Hemoglobin 14.4 gm/dl (11.8-15.2); Mean Corpuscular HGB Conc 34 % (32-34); Mean Corpuscular Volume 97 fl (84-94); Platelet Count 176 K/mm3 (140-440); Red Cell Distribution Width 13.7 % (13.2-15.2)
[2020-09-28 06:03] LABS: Bacteria,Urine 1+ /HPF (Negative); Bilirubin,Urine NEG (Negative); Blood,Urine NEG (Negative); Color,Urine Yellow (Yellow); Mucus,Urine FEW /HPF; Urobilinogen,Urine < 2.0 mg/dL (<2.0)
[2020-09-28 06:10] LABS: Amphetamine Screen,Urine PRESUMPTIVE NEGATIVE; Benzodiazepines Screen,Urine PRESUMPTIVE NEGATIVE; Cannabinoid Screen,Urine PRESUMPTIVE NEGATIVE; Cocaine Screen,Urine PRESUMPTIVE NEGATIVE; Methadone Screen,Urine PRESUMPTIVE NEGATIVE; Opiate Screen,Urine PRESUMPTIVE NEGATIVE
[2020-09-28 06:11] LABS: BUN/Creatinine Ratio 14; Blood Urea Nitrogen 15 mg/dL (9-20); Calcium 9.3 mg/dL (8.4-10.2); Hemolysis Index 5
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
[2020-09-28 11:27] LABS: Platelet Estimate Consistent w Auto; RBC Morphology Normal; Total Cells Counted 100
== END 2020-09-28 12:59 | disposition home or self-care (01) ==
LOC: ED 04:27
DX: F20.9 Schizophrenia, unspecified (principal); G47.00 Insomnia, unspecified; I10 Essential (primary) hypertension; F31.9 Bipolar disorder, unspecified; J45.909 Unspecified asthma, uncomplicated; Z91.013 Allergy to seafood; Z79.899 Other long term (current) drug therapy
CPT/HCPCS: 36415; 80048; 80164; 80307; 80320; 81001; 85007; 85025; 99283; G0480